=== PATIENT | female | born 1940 | race Caucasian/White ===

== ENCOUNTER 2023-01-16 19:40 | Emergency (ER) | payer MEDICARE, MEDICAID ==
[2023-01-16 21:15] LABS: Bilirubin Neg (Negative); Blood, Urine 50 (Negative); Clarity Cloudy (Clear); Glucose, Urine (Dipstick) Normal (Negative); Ketone, Urine 5 mg/dL (Negative); Leukocyte 500 (Negative); Nitrite Positive (Negative); Protein, Urine (Dipstick) 100 mg/dl (Neg-Trace); Specific Gravity, Urine 1.025 (1.005-1.030); Urobilinogen Normal mg/dL (Less than 2)
[2023-01-16 21:30] LABS: Bacteria/HPF 3+ HPF (None Seen); RBC/HPF 0-3 HPF (0-3); Squamous Epithelial 0-3 HPF (0-3); WBC/HPF Greater than 50 HPF (0-3)
[2023-01-16] MEDS ORDERED: Cephalexin 250 MG CAP ONE (21:46)
[2023-01-16] MEDS ORDERED: traMADol HCl 50 MG TAB ONE (21:47)
[2023-01-16] MEDS ORDERED: Cephalexin 250 MG/5 ML Oral Suspension PO SCH (22:15)
== END 2023-01-16 23:47 | disposition home or self-care (01) ==
LOC: CSHERS 19:40
DX: S42.321A Displaced transverse fracture of shaft of humerus, right arm, initial encounter for closed fracture (principal); N30.01 Acute cystitis with hematuria; I12.9 Hypertensive chronic kidney disease with stage 1 through stage 4 chronic kidney disease, or unspecified chronic kidney disease; N18.4 Chronic kidney disease, stage 4 (severe); W01.10XA Fall on same level from slipping, tripping and stumbling with subsequent striking against unspecified object, initial encounter; Y92.098 Other place in other non-institutional residence as the place of occurrence of the external cause
CPT/HCPCS: 51701; 70450; 71045; 72125; 72170; 81003; 81015; 87077; 87086; 87186

== ENCOUNTER 2023-01-25 22:59 | Emergency (ER) | payer MEDICARE, MEDICAID ==
[2023-01-26] MEDS ORDERED: Acetaminophen 325 MG TAB ONE (00:37)
== END 2023-01-26 00:40 | disposition home or self-care (01) ==
LOC: CSHERS 22:59
DX: S00.83XA Contusion of other part of head, initial encounter (principal); I12.9 Hypertensive chronic kidney disease with stage 1 through stage 4 chronic kidney disease, or unspecified chronic kidney disease; N18.4 Chronic kidney disease, stage 4 (severe); W19.XXXA Unspecified fall, initial encounter; Y92.129 Unspecified place in nursing home as the place of occurrence of the external cause
CPT/HCPCS: 70450; 72125